=== PATIENT | female | born 1945 | race Caucasian/White ===

== ENCOUNTER 2019-07-04 05:24 | Inpatient (IN) ==
--- NOTE | 2019-07-02 13:54 | EKG Report ---
Test Performed on : 07/02/2019 1:47:31 PM Test Reason : PAT Blood Pressure : / mmHG Vent. Rate : 089 BPM Atrial Rate : 089 BPM P-R Int : 164 ms QRS Dur : 090 ms QT Int : 364 ms P-R-T Axes : 045 -32 040 degrees QTc Int : 442 ms Normal sinus rhythm. Left axis deviation Abnormal ECG When compared with ECG of 23-APR-2013 23:12, Vent. rate has increased BY 30 BPM Confirmed by Farnaz LEONARD, Luis Angel Bar ([id number]) on 07/03/2019 7:44:13 AM
[2019-07-02 14:36] LABS: HEMATOCRIT 37.3 % (37.0-47.0); HEMOGLOBIN 11.8 g/dL (12.0-16.0); MCH 30.9 PG (27-31); MCHC 31.6 g/dL (33-37); MCV 97.6 FL (81-99); MPV 11.8 FL (7.4-10.4); RBC 3.82 XMIL (4.2-5.4); RDW 18.2 % (11.5-14.5); WBC 8.26 X1000 (4.8-10.8)
[2019-07-02 14:48] LABS: AGAP 9; BUN 16 mg/dL (8-22); CALCIUM 8.5 mg/dL (8.8-10.2); CHLORIDE 101 mmol/L (98-107); COSMO 278; CREATININE 0.9 mg/dL (0.5-0.9); ESTIMATED GFR > 60; GLUCOSE 87 mg/dL (70-104); POTASSIUM 5.2 mmol/L (3.5-5.1); SODIUM 139 mmol/L (136-145); TCO2 29 mmol/L (25-35)
[2019-07-04] MEDS ORDERED: INVANZ 1 GM/NS 1 GM/50 ML IVPB ONE (05:35)
[2019-07-04] MEDS ORDERED: ENTEREG ONE (05:35)
[2019-07-04] MEDS: LR 1,000 ML ONE ×2 (05:52→06:50)
[2019-07-04] MEDS ORDERED: ZOFRAN ONE (06:19)
[2019-07-04] MEDS ORDERED: DIPRIVAN 1% ONE (06:20)
[2019-07-04] MEDS ORDERED: FENTANYL ONE (06:20)
[2019-07-04] MEDS ORDERED: QUELICIN (DOSE) ONE (06:23)
[2019-07-04] MEDS ORDERED: ZEMURON ONE (06:23)
[2019-07-04] MEDS ORDERED: EXPAREL 1.3% ONE (06:54)
[2019-07-04] MEDS ORDERED: MARCAINE 0.25% PF ONE (06:54)
[2019-07-04 07:46] LABS: URINE SOURCE CATH
[2019-07-04 07:56] LABS: BILIRUBIN URINE NEGATIVE (NEGATIVE); BLOOD URINE NEGATIVE (NEGATIVE); COLOR YELLOW; GLUCOSE URINE NEGATIVE (NEGATIVE); KETONE URINE 10 mg/dL (NEGATIVE); LEUKOCYTES URINE SMALL (NEGATIVE); NITRITE URINE NEGATIVE (NEGATIVE); PH URINE 5.5; PROTEIN URINE TRACE mg/dL (NEGATIVE); SP GRAVITY URINE 1.015; TURBIDITY URINE CLEAR (CLEAR); UROBILINOGEN URINE NORMAL (NORMAL)
[2019-07-04 07:57] LABS: UR EPITHELIAL CELLS <10 /HPF (<10); URINE BACTERIA NEGATIVE /HPF; URINE RBC <10 /HPF (<10)
[2019-07-04] MEDS ORDERED: BRIDION ONE (09:21)
[2019-07-04] MEDS ORDERED: MORPHINE ONE (09:28)
--- NOTE | 2019-07-04 10:05 | Diag Imaging Result Doc PS360 ---
EXAM: CHEST-PORTABLE HISTORY: CENTRAL LINE PLACEMENT TECHNIQUE: Single view COMPARISON: 11/02/2016 FINDINGS: The lungs are well expanded. The heart is not enlarged. There is a right subclavian portacatheter. The tip overlies the distal superior vena cava and the right atrium. No pneumothorax. The vessels are not distended. There are no infiltrates. No effusion identified. There has been surgery to the lower neck. IMPRESSION: No postprocedural pneumothorax. Electronically signed by Mane Ellis 07/04/2019 10:03 AM
[2019-07-04] MEDS ORDERED: D5 1/2 NS + KCL 20 MEQ 1,000 ML ONE (10:10)
[2019-07-04] MEDS ORDERED: MORPHINE INJ PRN (10:28)
[2019-07-04] MEDS ORDERED: NORCO-10 PO PRN (10:28)
[2019-07-04] MEDS ORDERED: TORADOL IV SCH (10:30)
[2019-07-04] MEDS: ZOFRAN IV PRN (11:10)
[2019-07-04] MEDS: TORADOL IV SCH ×3 (11:20→23:10)
[2019-07-04] MEDS: OFIRMEV 1000 MG/ISOTONIC SOLN 1,000 MG/100 ML BOTTLE IV SCH ×3 (11:25→23:08)
[2019-07-04] MEDS ORDERED: MORPHINE IV PRN (13:15)
--- NOTE | 2019-07-04 14:31 | OPERATIVE NOTE ---
PROCEDURE DATE: 07/04/2019 PREOPERATIVE DIAGNOSES: 1. Colovaginal fistula. 2. Complicated sigmoid diverticulitis. 3. Poor peripheral veins. POSTOPERATIVE DIAGNOSES: 1. Colovaginal fistula. 2. Complicated sigmoid diverticulitis. 3. Poor peripheral veins. PRINCIPAL PROCEDURE: 1. Right subclavian central venous line. 2. Open low anterior colon resection. SURGEON: Tiffanie Marino MD. SUPERVISOR INSPECTING: Carter Hernández MD. ANESTHESIA: General in addition to TAP block. ESTIMATED BLOOD LOSS: 150 mL. DRAINS: None. INDICATIONS: Renee Martínez is a 73-year-old white female who has a history of sigmoid diverticulitis and has developed a colovaginal fistula. She has had a hysterectomy. Low anterior colon resection was recommended. FINDINGS: She had poor peripheral veins and anesthesia had difficulty getting IV access, so I placed a right subclavian central venous line. She did have a colovaginal fistula between her distal sigmoid colon and the vaginal cuff. We did perform a low anterior colon resection. We did take some of the rectum with our sigmoid resection. We were able to bring the descending colon down to the proximal rectum and performed an end-to-end stapled 28 mm EEA anastomosis. There was no tension on our anastomosis. We felt the blood supply was adequate. When we blew air past our anastomosis using a rigid proctoscope, there was no evidence of leak. We did place the greater omentum down by our anastomosis and where the vaginal fistula was. We did not close the vaginal cuff. DESCRIPTION OF PROCEDURE: The patient was brought to the operating room, placed supine, received general anesthesia, was intubated. Cervantes catheter tube was placed. Anesthesia did a TAP block per Dr. Mckinnon. I placed a right subclavian central venous line. This area was prepped and draped within the sterile field. I used an 18-gauge needle to access the right subclavian vein and through this needle, I placed a guidewire into the right side of the heart. The needle was removed. I placed a dilator over the guidewire, and then I used an antibiotic coated triple-lumen central venous line and placed it over the guidewire into the superior vena cava. The guidewire was removed. All 3 ports were functioning and were flushed with saline. I secured the central venous line to the skin with several 3-0 silk stitches. Dressings were applied. I then directed my attention to the abdomen. She was in stirrups. We prepped and draped the abdomen. She had undergone a bowel prep prior to her presentation and she received IV Invanz and was placed on the Entereg protocol. I made a lower midline incision with a 10 blade scalpel. This incision was carried down through the skin and subcutaneous tissue to the midline fascia, which was incised using cautery and then the abdomen was carefully entered. There were some adhesions between the greater omentum and the anterior abdominal wall and I carefully took those down using cautery. I used a large wound protector for retraction. I placed it in our midline incision. At this point, the patient was placed in Trendelenburg and I packed the bowel out of the pelvis with moist laps. I began the procedure by mobilizing the sigmoid colon in the distal descending colon by incising the peritoneum laterally from proximal to distal. The distal sigmoid colon was tightly adhered to the vaginal cuff just below the bladder and I had to carefully, using cautery and finger-fracture, removed the tightly adhered colon from the pelvic sidewall. There was no disease in the rectum. I came across the proximal rectum with a 45 mm in length blue load TA stapler. I used the ligature to transect the mesentery but when I got to the inferior mesenteric vein and artery, I suture ligated them with a 2-0 silk stitch. Proximal to the disease, I came across the sigmoid descending colon junction with a pursestring instrument and I used Stearns scissors to transect the proximal colon just distal to our pursestring. I sized the distal colon and felt that a 28 mm EEA stapler was necessary. I put the anvil into the proximal colon and I tied the pursestring over it. We took some time to clean any fat or epiploic appendages away from our anvil. We also took some time to clean the rectal stump from fat around the leoncio there. At this point, Dr. Ghassan Hernández went below and inserted the EEA stapler through the rectum. I was above and I directed the EEA stapler to the distal aspect of our rectum. The point of the EEA was brought out through the mid rectum and I mated the anvil to the EEA stapler making sure that the proximal bowel was not twisted or any fat was caught between the anvil and the EEA stapler. Dr. Hernández brought the 2 pieces of bowel together and fired the EEA stapler. He reported that the donuts were intact. We then blew some air across our anastomosis after filling the pelvis with warm saline and there was no leakage of air. I did put several 3-0 Lembert stitches in the areas of the anastomosis to reinforce this staple line. There was no tension on our anastomosis. We felt we had good blood supply and the caliber of the anastomosis was adequate. I thoroughly irrigated out the pelvis. There was no evidence of ongoing bleeding. I placed the bowel back in the anatomically correct position. I made sure that the cecum laid in the pelvis in the small bowel and then I brought the omentum down over the anterior aspect of the anastomosis and along the vaginal cuff. The needle and sponge counts were correct and I closed the midline incision after changing gloves in layers. The first layer was a running 2-0 Vicryl stitch to close the peritoneum and then I closed the fascia with a running #1 Maxon stitch. The skin was closed with a skin clip bunch breaker. Xeroform, followed by dry dressing and Medipore tape were used for dressing. We left the Cervantes catheter tube in place. She has a central venous line in place. She will go to the recovery room. She will get a chest x-ray, and then plans are for her to go to the floor. She tolerated the procedure well. cc: Tiffanie Marino MD
[2019-07-04] MEDS: POTASSIUM CHLORIDE 20 MEQ in D5 1/2 NS 1,000 ML IV SCH (19:28)
[2019-07-04] MEDS: PERIDEX MT SCH (23:09)
[2019-07-04] MEDS: NEURONTIN PO SCH (23:09)
[2019-07-05] MEDS: POTASSIUM CHLORIDE 20 MEQ in D5 1/2 NS 1,000 ML IV SCH ×2 (03:24→16:40)
[2019-07-05] MEDS: TORADOL IV SCH (06:07)
[2019-07-05] MEDS: OFIRMEV 1000 MG/ISOTONIC SOLN 1,000 MG/100 ML BOTTLE IV SCH ×4 (06:07→21:26)
--- NOTE | 2019-07-05 09:31 | GENERAL SURGERY PROGRESS NOTE ---
DATE: 07/05/2019 SUBJECTIVE: Patient seems to be doing okay. OBJECTIVE: Vital Signs: Patient is currently afebrile. Her vital signs are stable. General: No acute distress. Cardiovascular: Regular rate and rhythm. Lungs: Grossly clear. Abdomen: Soft, appropriately tender. Incision is healing well. ASSESSMENT AND PLAN: A 73-year-old female, currently postoperative day #1 from open low anterior resection for colovaginal fistula. Postop state. At this time seems to be doing well. We will start her on a clear liquid diet and see how she does. Encourage ambulation. Make sure she has SCDs on and that she is getting heparin. cc: MD Tiffanie Sidhu MD
[2019-07-05 09:35] LABS: AGAP 12; BUN 6 mg/dL (8-22); CALCIUM 7.7 mg/dL (8.8-10.2); CHLORIDE 101 mmol/L (98-107); COSMO 271; CREATININE 0.7 mg/dL (0.5-0.9); ESTIMATED GFR > 60; GLUCOSE 121 mg/dL (70-104); POTASSIUM 3.9 mmol/L (3.5-5.1); SODIUM 136 mmol/L (136-145); TCO2 23 mmol/L (25-35)
[2019-07-05] MEDS: ENTEREG PO SCH ×2 (10:17→21:22)
[2019-07-05] MEDS: PERIDEX MT SCH ×2 (10:17→21:23)
[2019-07-05] MEDS: NEURONTIN PO SCH ×2 (10:17→21:22)
[2019-07-05] MEDS ORDERED: HEPARIN SUBQ SCH (13:00)
[2019-07-06] MEDS: POTASSIUM CHLORIDE 20 MEQ in D5 1/2 NS 1,000 ML IV SCH (05:44)
[2019-07-06] MEDS: OFIRMEV 1000 MG/ISOTONIC SOLN 1,000 MG/100 ML BOTTLE IV SCH ×5 (05:44→22:32)
--- NOTE | 2019-07-06 07:15 | GENERAL SURGERY PROGRESS NOTE ---
DATE: 07/06/2019 SUBJECTIVE: Patient doing okay. She did have an episode yesterday where she had a little bit of bloody bowel movements, but it seems to be transient. We did hold her heparin, but otherwise she is doing okay and has not had any more. She is passing gas. OBJECTIVE: Vital Signs: The patient is currently afebrile. Her vital signs are stable. General: No acute distress. Cardiovascular: Regular rate and rhythm. Lungs: Grossly clear. Abdomen: Soft, appropriately tender. Bowel sounds faintly auscultated. ASSESSMENT AND PLAN: A 73-year-old female, currently postoperative day #2 from open low anterior resection for colovaginal fistula. Postoperative state. At this time, she seems to be doing well. Will put her on a full liquid diet. Will continue her heparin. We did check her potassium yesterday, and it was normal, so will continue to monitor it as needed, but she seems to be doing well. cc: MD Tiffanie Sidhu MD
[2019-07-06] MEDS: PERIDEX MT SCH ×2 (10:00→22:32)
[2019-07-06] MEDS: NEURONTIN PO SCH ×2 (10:00→22:33)
[2019-07-06] MEDS: ENTEREG PO SCH ×2 (10:00→22:32)
[2019-07-06] MEDS: HEPARIN SUBQ SCH ×2 (13:14→22:33)
[2019-07-07] MEDS: OFIRMEV 1000 MG/ISOTONIC SOLN 1,000 MG/100 ML BOTTLE IV SCH (06:28)
[2019-07-07] MEDS: HEPARIN SUBQ SCH ×2 (06:29→14:48)
[2019-07-07] MEDS: POTASSIUM CHLORIDE 20 MEQ in D5 1/2 NS 1,000 ML IV SCH (06:34)
--- NOTE | 2019-07-07 07:47 | PROGRESS NOTE ---
DATE: 07/07/2019 SUBJECTIVE: Ms. Renee Martínez is a 73-year-old white female who is now postop day 3 from a low anterior colon resection for a colovaginal fistula. She had an end-to-end stapled anastomosis. Her Cervantes is out. We did not use an NG tube. She is ambulating in the room. She has had several bowel movements and we will advance her diet to a regular diet. We will change IV medications to p.o. medicines. OBJECTIVE: Heart rate is 64, blood pressure 131/58, O2 saturation 99%. She is afebrile on no antibiotics. cc: Tiffanie Marino MD
[2019-07-07] MEDS: ZOFRAN IV PRN (11:13)
[2019-07-07] MEDS: PERIDEX MT SCH (11:13)
[2019-07-07] MEDS: NEURONTIN PO SCH (11:13)
[2019-07-07 15:47] VITALS: BP 127/62
[2019-07-07] MEDS ORDERED: PREVNAR 13 IM ONE (18:15)
--- NOTE | 2019-07-08 14:26 | DISCHARGE SUMMARY ---
ADMISSION DATE: 07/04/2019 DISCHARGE DATE: 07/07/2019 ADMITTING DIAGNOSIS: Colovaginal fistula. DISCHARGE DIAGNOSIS: Colovaginal fistula. PRINCIPAL PROCEDURE: Open low anterior colon resection on 07/04/2019. DISCHARGE DISABILITY: Full. DISCHARGE DISPOSITION: She will return to our outpatient offices next week for followup. DISCHARGE DIET: Regular. DISCHARGE MEDICATIONS: She is to return to her home medications. HOSPITAL COURSE: Ms. Renee Martínez is a 73-year-old white female who has a history of acute sigmoid diverticulitis. She has developed a colovaginal fistula, and resection was recommended. On the day prior to her presentation, she underwent a bowel prep, and then presented on the day of surgery through Outpatient Surgery. She went back to the operating room, where we placed her in stirrups. Her abdomen was prepped and draped. We did an open low anterior colon resection of her sigmoid colon and her proximal rectum. We performed an end-to-end EEA stapled anastomosis, 28 mm. We felt the surgery went well. We did not use an NG tube. Cervantes catheter tube was left in place. No abdominal drains were used. No other intra-abdominal pathology was noted. We did send the specimen to the pathologist, and it was pending at the patient's discharge. On postop day 2, her Cervantes catheter tube was removed. She had no problems voiding. She was ambulating in her room. We advanced her to a regular diet on her day of discharge, and she was tolerating that. Her abdomen was soft. There was no tenderness. Her midline incision was healing well, and she will be discharged home under the care of her family with followup in my outpatient offices in a week. She knows to contact me with any problems, such as increasing abdominal distention, pain, or fever. cc: Tiffanie Marino MD
== END 2019-07-07 18:42 | disposition home or self-care (01) | DRG 330 ==
LOC: SURHOLD 05:24 → 4N 10:58
PROVIDERS: ADMIT Surgery; ATTEND Surgery